=== PATIENT | female | born 1940 | race Caucasian/White ===

== ENCOUNTER 2021-02-28 06:04 | Inpatient (IN) | payer MEDICARE, OTHER ==
[~2021-02-28] VITALS: Ht 160 cm; Wt 73.5 kg
[~2021-02-28 06:04] MED LIST: ACET-1600 PO; CALC-112 PO; DILT120C11 PO; ERGO500017 PO; FENO160T PO; HYDR200T72 PO; LEVO88TA2 PO; LOSA100T14 PO; MAGN400T36 PO; MELO15TA24 PO; NIAC500T35 PO; OMEP-110 PO; POTA10TA5 PO; PSYL0.5215 PO; TEMA15CA PO; VIT-5 PO; [UNRECOGNIZED DRUG - CODE] PO
[2021-02-28] MEDS ORDERED: LACTATED RINGERS 1,000 ML IV SCH (07:00)
[2021-02-28] MEDS ORDERED: VANCOMYCIN PMX 1GM/200ML 200 ML IV ONE (07:00)
[2021-02-28] MEDS ORDERED: CHLORHEXIDINE 15 ML UDC PO ONE (07:00)
[2021-02-28] MEDS ORDERED: VANCOMYCIN 1,000 MG in SODIUM CHLORIDE 0.9% 100 ML IV ONE (07:00)
[2021-02-28] MEDS ORDERED: BUPIVACAINE/PF 0.5% ONE (07:07)
[2021-02-28] MEDS ORDERED: EPINEPHRINE 1 MG/ML, 1ML ONE (07:07)
[2021-02-28] MEDS ORDERED: THROMBIN 20,000 UNIT VIAL TP ONE (07:07)
[2021-02-28] MEDS ORDERED: VANCOMYCIN 1,000 MG ONE (07:07)
[2021-02-28] MEDS ORDERED: TRANEXAMIC ACID 100 MG/ML, 10ML ONE ×2 (07:07)
[2021-02-28] MEDS ORDERED: HEPARIN 1,000 UNITS/ML, 10ML ONE (07:42)
[2021-02-28] MEDS ORDERED: PROPOFOL 50 ML ONE ×3 (07:55→10:32)
[2021-02-28] MEDS ORDERED: FENTANYL PF 250 MCG/5ML ONE (07:55)
[2021-02-28] MEDS ORDERED: MIDAZOLAM 1 MG/ML, 2ML ONE (07:55)
[2021-02-28] MEDS ORDERED: HALOPERIDOL 5 MG/ML IV PRN (08:00)
[2021-02-28] MEDS ORDERED: HYDROmorphone 1 MG/ML, 1ML INJ IVPush PRN (08:00)
[2021-02-28] MEDS ORDERED: LABETALOL 5MG/ML, 20ML IV PRN (08:00)
[2021-02-28] MEDS ORDERED: DIPHENHYDRAMINE 50 MG/ML, 1ML IVPush PRN ×2 (08:00→13:00)
[2021-02-28] MEDS ORDERED: FENTANYL PF 100 MCG/2ML IV PRN (08:00)
[2021-02-28] MEDS ORDERED: ACETAMINOPHEN 325 MG TABLET PO PRN (08:00)
[2021-02-28] MEDS ORDERED: MEPERIDINE/PF 25MG/0.5ML IVPush PRN (08:00)
[2021-02-28] MEDS ORDERED: hydrALAzine 20 MG/ML, 1ML IV PRN (08:00)
[2021-02-28] MEDS ORDERED: OXYcodone 5 MG/5 ML ORAL.SOL UDC PO PRN (08:00)
[2021-02-28] MEDS ORDERED: PROMETHAZINE 25 MG/ML, 1ML IVPush PRN (08:00)
[2021-02-28] MEDS ORDERED: FENTANYL PF 100 MCG/2ML ONE (09:31)
[2021-02-28] MEDS ORDERED: BUPIVACAINE/PF-EPI 0.5% 1:200K IM ONE (10:03)
[2021-02-28] MEDS ORDERED: HYDROmorphone 1 MG/ML, 1ML INJ ONE (10:33)
[2021-02-28] MEDS ORDERED: NEOSTIGMINE 1 MG/ML, 10ML ONE (11:57)
[2021-02-28] MEDS ORDERED: PROPOFOL 10 MG/ML, 20ML ONE (11:57)
[2021-02-28] MEDS ORDERED: CEFAZOLIN 1,000 MG ONE (11:57)
[2021-02-28] MEDS ORDERED: SUCCINYLCHOLINE 20 MG/ML, 10ML ONE (11:57)
[2021-02-28] MEDS ORDERED: GLYCOPYRROLATE 0.2MG/1ML, 5ML ONE (11:57)
[2021-02-28] MEDS ORDERED: ROCURONIUM 10MG/ML,5ML ONE (11:57)
[2021-02-28] MEDS ORDERED: ONDANSETRON 2MG/ML, 2ML ONE (11:57)
[2021-02-28] MEDS ORDERED: DEXAMETHASONE 4 MG/ML, 1ML ONE (11:57)
[2021-02-28] MEDS ORDERED: TRANEXAMIC ACID 100 MG/ML, 10ML TP ONE (13:00)
[2021-02-28] MEDS: METHOCARBAMOL 1,000 MG in DEXTROSE 5% 100 ML IV SCH ×2 (13:00→21:02)
[2021-02-28] MEDS ORDERED: morphine SULFATE 10 MG/ML, 1ML IVPush PRN (13:00)
[2021-02-28] MEDS ORDERED: KETOROLAC 30 MG/1 ML IVPush PRN (13:00)
[2021-02-28] MEDS ORDERED: DIPHENHYDRAMINE 50 MG CAPSULE PO PRN (13:00)
[2021-02-28] MEDS ORDERED: PROMETHAZINE 25 MG/ML, 1ML IM PRN (13:00)
[2021-02-28] MEDS ORDERED: MAGNESIUM HYDROXIDE 8%, 30ML UDC PO PRN (13:00)
[2021-02-28] MEDS ORDERED: SODIUM CHLORIDE 0.9% 1,000 ML IV PRN (13:00)
[2021-02-28] MEDS ORDERED: KETOROLAC 30 MG/1 ML IVPush ONE (13:00)
[2021-02-28] MEDS ORDERED: HYDROmorphone 2MG TABLET PO PRN (13:00)
[2021-02-28] MEDS ORDERED: LORazepam 1MG TABLET PO PRN (13:00)
[2021-02-28] MEDS ORDERED: DIPHENHYDRAMINE 50 MG/ML, 1ML IM PRN (13:00)
[2021-02-28] MEDS ORDERED: BISACODYL 10 MG SUPP PR PRN (13:00)
[2021-02-28] MEDS ORDERED: TRANEXAMIC ACID 1,000 MG in SODIUM CHLORIDE 0.9% 100 ML IVPB ONE (13:30)
[2021-02-28] MEDS: NS + 20MEQ KCL 1,000 ML IV SCH (15:19)
[2021-02-28] MEDS: INSULIN REGULAR 100 UNITS/ML, 3ML VIAL SQ-INSULIN SCH ×2 (16:00→20:23)
[2021-02-28] MEDS: CEFAZOLIN PMX 1GM/50ML 50 ML IVPB SCH (16:00)
[2021-02-28] MEDS: OXYcodone IR 5MG TABLET PO PRN ×2 (18:02→21:02)
[2021-02-28 20:22] VITALS: BP 141/71
[2021-02-28] MEDS ORDERED: ZOLPIDEM 5MG TABLET PO PRN (21:00)
[2021-02-28] MEDS: ACETAMINOPHEN 500 MG TABLET PO SCH (21:03)
[2021-02-28] MEDS: HYDROXYCHLOROQUINE 200 MG TABLET PO SCH (21:03)
[2021-03-01 00:38] VITALS: BP 117/80
[2021-03-01] MEDS ORDERED: DEXAMETHASONE 4 MG/ML, 1ML ONE (00:51)
[2021-03-01] MEDS: CEFAZOLIN PMX 1GM/50ML 50 ML IVPB SCH (01:04)
[2021-03-01] MEDS: DEXAMETHASONE 4 MG/ML, 5ML IVPush PRN (01:04)
[2021-03-01] MEDS: NS + 20MEQ KCL 1,000 ML IV SCH ×2 (01:04→18:11)
[2021-03-01] MEDS: OXYcodone IR 5MG TABLET PO PRN (01:46)
[2021-03-01] MEDS: SENNA/DOCUSATE TABLET PO PRN (04:09)
[2021-03-01 04:39] VITALS: BP 153/52
[2021-03-01 05:31] LABS: BASOPHILS % (AUTO) 0 % (0-1); EOSINOPHILS % (AUTO) 0 % (1-7); LYMPHOCYTES % (AUTO) 4 % (22-44); MEAN CORPUSCULAR HEMOGLOBIN 28.4 pg (27.0-34.8); MEAN CORPUSCULAR HGB CONC 33.2 g/dL (32.4-35.8); MEAN PLATELET VOLUME 7.2 fL (7.4-10.4); MONOCYTES % (AUTO) 4 % (2-9); NEUTROPHILS % (AUTO) 91 % (42-75); PLATELET COUNT 294 x10^3/uL (130-400); RED BLOOD COUNT 3.41 x10^6/uL (3.82-5.3); RED CELL DISTRIBUTION WIDTH 15.2 % (9.6-15.2)
[2021-03-01] MEDS: METHOCARBAMOL 1,000 MG in DEXTROSE 5% 100 ML IV SCH ×2 (06:01→17:00)
[2021-03-01] MEDS: LEVOTHYROXINE 88 MCG TABLET PO SCH (06:02)
[2021-03-01] MEDS: OMEPRAZOLE 20 MG CAPSULE.DR PO SCH (06:37)
[2021-03-01] MEDS: INSULIN REGULAR 100 UNITS/ML, 3ML VIAL SQ-INSULIN SCH (06:38)
[2021-03-01 07:13] VITALS: BP 134/68
[2021-03-01] MEDS: FENOFIBRATE 145 MG TABLET PO SCH (08:59)
[2021-03-01] MEDS: POTASSIUM CHLORIDE 10 MEQ TABLET.ER PO SCH (09:00)
[2021-03-01] MEDS: ACETAMINOPHEN 500 MG TABLET PO SCH ×2 (09:00→20:52)
[2021-03-01] MEDS: LOSARTAN 100 MG TAB PO SCH (09:01)
[2021-03-01] MEDS: HYDROXYCHLOROQUINE 200 MG TABLET PO SCH ×2 (09:02→20:58)
[2021-03-01] MEDS: MAGNESIUM OXIDE 400 MG TABLET PO SCH (09:03)
[2021-03-01] MEDS: DILTIAZEM 120 MG CAP.ER.12H PO SCH (09:06)
[2021-03-01] MEDS: METHOCARBAMOL 750 MG TABLET PO SCH ×2 (13:00→20:53)
[2021-03-01 15:40] VITALS: BP 146/66
[2021-03-01] MEDS: PSYLLIUM PACKET PO SCH (20:00)
[2021-03-01 21:35] VITALS: BP 132/75
[2021-03-02] MEDS: OXYcodone IR 5MG TABLET PO PRN ×4 (01:45→17:38)
[2021-03-02 01:59] VITALS: BP 136/67
[2021-03-02] MEDS: METHOCARBAMOL 1,000 MG in DEXTROSE 5% 100 ML IV SCH ×2 (03:20→10:56)
[2021-03-02] MEDS: NS + 20MEQ KCL 1,000 ML IV SCH ×2 (03:20→12:26)
[2021-03-02] MEDS: LEVOTHYROXINE 88 MCG TABLET PO SCH (05:07)
[2021-03-02 05:35] LABS: BASOPHILS % (AUTO) 0 % (0-1); EOSINOPHILS % (AUTO) 0 % (1-7); LYMPHOCYTES % (AUTO) 11 % (22-44); MEAN CORPUSCULAR HGB CONC 32.5 g/dL (32.4-35.8); MEAN PLATELET VOLUME 7.5 fL (7.4-10.4); MONOCYTES % (AUTO) 10 % (2-9); NEUTROPHILS % (AUTO) 79 % (42-75); PLATELET COUNT 229 x10^3/uL (130-400); RED BLOOD COUNT 2.96 x10^6/uL (3.82-5.3); RED CELL DISTRIBUTION WIDTH 15.8 % (9.6-15.2)
[2021-03-02] MEDS: OMEPRAZOLE 20 MG CAPSULE.DR PO SCH (06:09)
[2021-03-02 07:14] VITALS: BP 137/68
[2021-03-02] MEDS: PSYLLIUM PACKET PO SCH (08:19)
[2021-03-02] MEDS: MAGNESIUM OXIDE 400 MG TABLET PO SCH (08:20)
[2021-03-02] MEDS: ACETAMINOPHEN 500 MG TABLET PO SCH ×2 (08:21→20:39)
[2021-03-02] MEDS: DILTIAZEM 120 MG CAP.ER.12H PO SCH (08:21)
[2021-03-02] MEDS: LOSARTAN 100 MG TAB PO SCH (08:21)
[2021-03-02] MEDS: POTASSIUM CHLORIDE 10 MEQ TABLET.ER PO SCH (08:21)
[2021-03-02] MEDS: FENOFIBRATE 145 MG TABLET PO SCH (08:21)
[2021-03-02] MEDS: HYDROXYCHLOROQUINE 200 MG TABLET PO SCH ×2 (08:29→20:39)
[2021-03-02] MEDS: SENNA/DOCUSATE TABLET PO PRN (10:56)
[2021-03-02] MEDS: METHOCARBAMOL 750 MG TABLET PO SCH ×2 (13:02→20:40)
[2021-03-02 14:07] VITALS: BP 132/65
[2021-03-02] MEDS: ONDANSETRON 2MG/ML, 2ML IV PRN (16:27)
[2021-03-02] MEDS: KETOROLAC 30 MG/1 ML IVPush PRN (16:27)
[2021-03-02 18:38] VITALS: BP 120/60
[2021-03-02] MEDS: GUAIFENESIN/DM 100-10MG, 5ML UDC PO PRN (20:38)
[2021-03-03] MEDS: KETOROLAC 30 MG/1 ML IVPush PRN ×3 (00:44→21:20)
[2021-03-03 00:46] VITALS: BP_SYST 136; BP_DIAS 66; BP_DIAS 86
[2021-03-03] MEDS: NS + 20MEQ KCL 1,000 ML IV SCH ×3 (02:06→23:29)
[2021-03-03] MEDS: METHOCARBAMOL 750 MG TABLET PO SCH ×3 (05:48→21:20)
[2021-03-03] MEDS: OMEPRAZOLE 20 MG CAPSULE.DR PO SCH (05:48)
[2021-03-03] MEDS: LEVOTHYROXINE 88 MCG TABLET PO SCH (05:49)
[2021-03-03 05:54] LABS: BASOPHILS % (AUTO) 0 % (0-1); EOSINOPHILS % (AUTO) 1 % (1-7); LYMPHOCYTES % (AUTO) 13 % (22-44); MEAN CORPUSCULAR HEMOGLOBIN 28.5 pg (27.0-34.8); MEAN CORPUSCULAR HGB CONC 32.7 g/dL (32.4-35.8); MEAN PLATELET VOLUME 7.6 fL (7.4-10.4); MONOCYTES % (AUTO) 8 % (2-9); NEUTROPHILS % (AUTO) 77 % (42-75); PLATELET COUNT 240 x10^3/uL (130-400); RED CELL DISTRIBUTION WIDTH 16.1 % (9.6-15.2)
[2021-03-03 08:48] VITALS: BP 137/69
[2021-03-03] MEDS: FENOFIBRATE 145 MG TABLET PO SCH (08:52)
[2021-03-03] MEDS: MAGNESIUM OXIDE 400 MG TABLET PO SCH (08:52)
[2021-03-03] MEDS: LOSARTAN 100 MG TAB PO SCH (08:52)
[2021-03-03] MEDS: OXYcodone IR 5MG TABLET PO PRN (08:52)
[2021-03-03] MEDS: PSYLLIUM PACKET PO SCH (08:52)
[2021-03-03] MEDS: POTASSIUM CHLORIDE 10 MEQ TABLET.ER PO SCH (08:52)
[2021-03-03] MEDS: DILTIAZEM 120 MG CAP.ER.12H PO SCH (08:52)
[2021-03-03] MEDS: HYDROXYCHLOROQUINE 200 MG TABLET PO SCH ×2 (08:53→21:00)
[2021-03-03] MEDS: ACETAMINOPHEN 500 MG TABLET PO SCH ×2 (08:56→21:19)
[2021-03-03] MEDS: ERGOCALCIFEROL 50,000 UNIT CAPSULE PO SCH (08:56)
[2021-03-03] MEDS: GUAIFENESIN/DM 100-10MG, 5ML UDC PO PRN ×2 (08:56→19:35)
[2021-03-03 13:29] VITALS: BP 125/63
[2021-03-03] MEDS ORDERED: DEXAMETHASONE 4 MG/ML, 1ML ONE ×2 (14:03→19:27)
[2021-03-03] MEDS: DEXAMETHASONE 4 MG/ML, 5ML IVPush PRN ×2 (14:06→19:34)
[2021-03-03 18:58] VITALS: BP 159/69
[2021-03-03] MEDS: SENNA/DOCUSATE TABLET PO PRN (19:35)
[2021-03-04 00:42] VITALS: BP 171/69
[2021-03-04] MEDS: LABETALOL 5MG/ML, 20ML IVPush PRN ×2 (00:49→07:14)
[2021-03-04 01:02] VITALS: BP 154/66
[2021-03-04] MEDS: GUAIFENESIN/DM 100-10MG, 5ML UDC PO PRN ×2 (02:47→21:26)
[2021-03-04] MEDS: METHOCARBAMOL 750 MG TABLET PO SCH ×3 (05:00→21:08)
[2021-03-04 05:49] LABS: BASOPHILS % (AUTO) 0 % (0-1); EOSINOPHILS % (AUTO) 0 % (1-7); LYMPHOCYTES % (AUTO) 5 % (22-44); MEAN CORPUSCULAR HEMOGLOBIN 28.2 pg (27.0-34.8); MEAN CORPUSCULAR HGB CONC 32.8 g/dL (32.4-35.8); MEAN PLATELET VOLUME 7.8 fL (7.4-10.4); MONOCYTES % (AUTO) 5 % (2-9); NEUTROPHILS % (AUTO) 90 % (42-75); PLATELET COUNT 262 x10^3/uL (130-400); RED BLOOD COUNT 2.77 x10^6/uL (3.82-5.3)
[2021-03-04] MEDS ORDERED: DEXAMETHASONE 4 MG/ML, 1ML ONE ×3 (06:22→18:26)
[2021-03-04] MEDS: KETOROLAC 30 MG/1 ML IVPush PRN ×2 (06:27→18:29)
[2021-03-04] MEDS: OMEPRAZOLE 20 MG CAPSULE.DR PO SCH (06:27)
[2021-03-04] MEDS: LEVOTHYROXINE 88 MCG TABLET PO SCH (06:28)
[2021-03-04] MEDS: DEXAMETHASONE 4 MG/ML, 5ML IVPush PRN ×3 (06:28→18:29)
[2021-03-04 06:34] VITALS: BP 164/66
[2021-03-04] MEDS: NS + 20MEQ KCL 1,000 ML IV SCH ×2 (08:04→17:03)
[2021-03-04 08:13] VITALS: BP 149/83
[2021-03-04] MEDS: LOSARTAN 100 MG TAB PO SCH (08:14)
[2021-03-04] MEDS: ACETAMINOPHEN 500 MG TABLET PO SCH ×2 (08:14→21:08)
[2021-03-04] MEDS: MAGNESIUM OXIDE 400 MG TABLET PO SCH (08:14)
[2021-03-04] MEDS: FENOFIBRATE 145 MG TABLET PO SCH (08:15)
[2021-03-04] MEDS: DILTIAZEM 120 MG CAP.ER.12H PO SCH (08:15)
[2021-03-04] MEDS: PSYLLIUM PACKET PO SCH (08:15)
[2021-03-04] MEDS: POTASSIUM CHLORIDE 10 MEQ TABLET.ER PO SCH (08:15)
[2021-03-04] MEDS: HYDROXYCHLOROQUINE 200 MG TABLET PO SCH ×2 (08:15→21:00)
[2021-03-04] MEDS: OXYcodone IR 5MG TABLET PO PRN (09:38)
[2021-03-04 13:35] VITALS: BP 138/63
[2021-03-04 19:08] VITALS: BP 151/64
[2021-03-04] MEDS: ALBUTEROL/IPRATROPIUM 2.5MG/0.5MG, 3 ML NPPB PRN (21:53)
[2021-03-05] MEDS ORDERED: DEXAMETHASONE 4 MG/ML, 1ML ONE ×2 (01:04→13:31)
[2021-03-05] MEDS: DEXAMETHASONE 4 MG/ML, 5ML IVPush PRN ×2 (01:17→13:37)
[2021-03-05] MEDS: LABETALOL 5MG/ML, 20ML IVPush PRN ×3 (01:27→13:37)
[2021-03-05 01:31] VITALS: BP 170/79
[2021-03-05 01:52] VITALS: BP 159/79
[2021-03-05] MEDS: LEVOTHYROXINE 88 MCG TABLET PO SCH (05:19)
[2021-03-05] MEDS: KETOROLAC 30 MG/1 ML IVPush PRN (05:19)
[2021-03-05] MEDS: METHOCARBAMOL 750 MG TABLET PO SCH ×3 (05:19→21:00)
[2021-03-05] MEDS: OMEPRAZOLE 20 MG CAPSULE.DR PO SCH (05:19)
[2021-03-05] MEDS: GUAIFENESIN/DM 100-10MG, 5ML UDC PO PRN ×3 (05:19→21:25)
[2021-03-05] MEDS: NS + 20MEQ KCL 1,000 ML IV SCH ×3 (05:40→21:00)
[2021-03-05 07:47] VITALS: BP 181/74
[2021-03-05] MEDS: ACETAMINOPHEN 500 MG TABLET PO SCH ×2 (09:00→21:25)
[2021-03-05] MEDS: HYDROXYCHLOROQUINE 200 MG TABLET PO SCH ×2 (09:36→21:25)
[2021-03-05] MEDS: POTASSIUM CHLORIDE 10 MEQ TABLET.ER PO SCH (09:36)
[2021-03-05] MEDS: FENOFIBRATE 145 MG TABLET PO SCH (09:36)
[2021-03-05] MEDS: LOSARTAN 100 MG TAB PO SCH (09:36)
[2021-03-05] MEDS: PSYLLIUM PACKET PO SCH (09:37)
[2021-03-05] MEDS: DILTIAZEM 120 MG CAP.ER.12H PO SCH (09:37)
[2021-03-05] MEDS: MAGNESIUM OXIDE 400 MG TABLET PO SCH (09:37)
[2021-03-05] MEDS: ONDANSETRON 2MG/ML, 2ML IV PRN (11:39)
[2021-03-05 11:59] LABS: BASOPHILS % (AUTO) 0 % (0-1); EOSINOPHILS % (AUTO) 0 % (1-7); LYMPHOCYTES % (AUTO) 5 % (22-44); MEAN CORPUSCULAR HGB CONC 32.8 g/dL (32.4-35.8); MEAN PLATELET VOLUME 7.6 fL (7.4-10.4); MONOCYTES % (AUTO) 10 % (2-9); NEUTROPHILS % (AUTO) 84 % (42-75); PLATELET COUNT 387 x10^3/uL (130-400); RED BLOOD COUNT 2.88 x10^6/uL (3.82-5.3); RED CELL DISTRIBUTION WIDTH 16.3 % (9.6-15.2)
[2021-03-05 12:33] VITALS: BP 192/79
[2021-03-05 18:44] VITALS: BP 155/91
[2021-03-05] MEDS: ALBUTEROL/IPRATROPIUM 2.5MG/0.5MG, 3 ML NPPB PRN (23:22)
[2021-03-06] VITALS (16 sets, daily range): BP systolic 118–201; BP diastolic 70–95
[2021-03-06] MEDS: TEMAZEPAM 15 MG CAPSULE PO PRN ×2 (00:13→21:38)
[2021-03-06] MEDS: METHOCARBAMOL 750 MG TABLET PO SCH ×4 (05:00→21:38)
[2021-03-06] MEDS: GUAIFENESIN/DM 100-10MG, 5ML UDC PO PRN ×2 (05:19→14:51)
[2021-03-06] MEDS: LEVOTHYROXINE 88 MCG TABLET PO SCH (05:19)
[2021-03-06] MEDS: LABETALOL 5MG/ML, 20ML IVPush PRN ×4 (05:32→12:58)
[2021-03-06] MEDS: OMEPRAZOLE 20 MG CAPSULE.DR PO SCH (06:10)
[2021-03-06 06:18] LABS: BASOPHILS % (AUTO) 0 % (0-1); EOSINOPHILS % (AUTO) 0 % (1-7); LYMPHOCYTES % (AUTO) 6 % (22-44); MEAN CORPUSCULAR HEMOGLOBIN 27.8 pg (27.0-34.8); MEAN CORPUSCULAR HGB CONC 32.8 g/dL (32.4-35.8); MEAN PLATELET VOLUME 7.8 fL (7.4-10.4); MONOCYTES % (AUTO) 6 % (2-9); NEUTROPHILS % (AUTO) 88 % (42-75); PLATELET COUNT 315 x10^3/uL (130-400); RED BLOOD COUNT 2.75 x10^6/uL (3.82-5.3)
[2021-03-06] MEDS: MAGNESIUM OXIDE 400 MG TABLET PO SCH (08:24)
[2021-03-06] MEDS: PSYLLIUM PACKET PO SCH (08:24)
[2021-03-06] MEDS: ACETAMINOPHEN 500 MG TABLET PO SCH ×2 (08:24→20:22)
[2021-03-06] MEDS: POTASSIUM CHLORIDE 10 MEQ TABLET.ER PO SCH (08:24)
[2021-03-06] MEDS: SENNA/DOCUSATE TABLET PO PRN (08:24)
[2021-03-06] MEDS: HYDROXYCHLOROQUINE 200 MG TABLET PO SCH ×2 (08:25→20:22)
[2021-03-06] MEDS: NS + 20MEQ KCL 1,000 ML IV SCH (10:00)
[2021-03-06] MEDS ORDERED: DEXTROMETHORPHAN 30 MG/5 ML ORAL SOL PO PRN (17:00)
[2021-03-06] MEDS ORDERED: AMLODIPINE 5 MG TABLET PO ONE (17:21)
[2021-03-06 17:38] LABS: MEAN CORPUSCULAR HEMOGLOBIN 27.5 pg (27.0-34.8); MEAN CORPUSCULAR HGB CONC 32.3 g/dL (32.4-35.8); MEAN PLATELET VOLUME 7.6 fL (7.4-10.4); PLATELET COUNT 388 x10^3/uL (130-400); RED BLOOD COUNT 2.88 x10^6/uL (3.82-5.3); RED CELL DISTRIBUTION WIDTH 15.9 % (9.6-15.2)
[2021-03-06 17:49] LABS: ALANINE AMINOTRANSFERASE 43 U/L (12-78); ALBUMIN 2.2 g/dL (3.4-5.0); ANION GAP 6 mmol/L (5-15); CALCIUM 8.4 mg/dL (8.5-10.1); CHLORIDE 104 mmol/L (98-107); CREATININE 0.74 mg/dL (0.55-1.02)
[2021-03-06 17:51] LABS: ALKALINE PHOSPHATASE 46 U/L (45-117); BILIRUBIN,TOTAL 0.5 mg/dL (0.2-1.0); TOTAL PROTEIN 5.8 g/dL (6.4-8.2)
[2021-03-06 18:09] LABS: BAND#(MANUAL) 0.52 x10^3/uL; BANDS%(MANUAL) 3 % (0-7); LYMPH#(MANUAL) 1.74 x10^3/uL (1-3.4); LYMPHS% (MANUAL) 10 % (22-44); METAMYELOCYTES# (MANUAL) 0.35 x10^3/uL (0-0); METAMYELOCYTES% (MANUAL) 2 % (0-1); MONOS#(MANUAL) 1.22 x10^3/uL (0.3-2.7); MONOS% (MANUAL) 7 % (2-9); MYELOCYTES# (MANUAL) 0.17 x10^3/uL (0-0); MYELOCYTES% (MANUAL) 1 % (0-0); SEGS% (MANUAL) 77 % (42-75)
[2021-03-06 18:10] LABS: <PLATELET ESTIMATE> ADEQUATE; <PLT MORPHOLOGY> NORMAL PLT MORPH; <RBC MORPHOLOGY> NORMAL
[2021-03-06] MEDS: FENOFIBRATE 145 MG TABLET PO SCH (20:22)
[2021-03-06] MEDS: LOSARTAN 100 MG TAB PO SCH (20:22)
[2021-03-06] MEDS ORDERED: DILTIAZEM 120 MG CAP.ER.12H PO SCH (21:00)
[2021-03-07] MEDS ORDERED: CARVEDILOL 3.125 MG TABLET PO ONE (02:00)
[2021-03-07] MEDS ORDERED: CARVEDILOL 3.125 MG TABLET ONE (02:06)
[2021-03-07] MEDS ORDERED: KETOROLAC 15 MG/1ML IM SCH (02:10)
[2021-03-07 02:31] VITALS: BP 171/80
[2021-03-07 02:39] LABS: MEAN CORPUSCULAR HEMOGLOBIN 27.8 pg (27.0-34.8); MEAN CORPUSCULAR HGB CONC 32.8 g/dL (32.4-35.8); MEAN PLATELET VOLUME 7.9 fL (7.4-10.4); PLATELET COUNT 406 x10^3/uL (130-400); RED BLOOD COUNT 3.06 x10^6/uL (3.82-5.3); RED CELL DISTRIBUTION WIDTH 16.2 % (9.6-15.2)
[2021-03-07] MEDS: KETOROLAC 30 MG/1 ML IM SCH ×2 (02:44→05:14)
[2021-03-07 02:49] LABS: ANION GAP 8 mmol/L (5-15); CALCIUM 8.5 mg/dL (8.5-10.1); CHLORIDE 101 mmol/L (98-107); CREATININE 0.63 mg/dL (0.55-1.02)
[2021-03-07 02:53] LABS: TROPONIN I 0.029 ng/mL (0.000-0.045)
[2021-03-07] MEDS ORDERED: OMNIPAQUE 350 MG/ML, 75ML BOTTLE ONE (03:28)
[2021-03-07 03:32] LABS: BAND#(MANUAL) 0.56 x10^3/uL; BANDS%(MANUAL) 3 % (0-7); LYMPH#(MANUAL) 1.87 x10^3/uL (1-3.4); LYMPHS% (MANUAL) 10 % (22-44); MONOS#(MANUAL) 0.75 x10^3/uL (0.3-2.7); MONOS% (MANUAL) 4 % (2-9); MYELOCYTES# (MANUAL) 0.19 x10^3/uL (0-0); MYELOCYTES% (MANUAL) 1 % (0-0); SEG#(MANUAL) 15.33 x10^3/uL (1.8-6.8); SEGS% (MANUAL) 82 % (42-75)
[2021-03-07 03:33] LABS: ANISOCYTOSIS 1+; ECHINOCYTES 1+; OVALOCYTES 1+; POLYCHROMASIA 1+
[2021-03-07 03:34] LABS: <PLATELET ESTIMATE> INCREASED; <PLT MORPHOLOGY> NORMAL PLT MORPH
[2021-03-07 03:43] VITALS: BP 138/88
[2021-03-07] MEDS ORDERED: METOPROLOL 1 MG/ML, 5ML ONE (03:56)
[2021-03-07] MEDS: METOPROLOL 1 MG/ML, 5ML IVPush PRN ×3 (03:59→08:46)
[2021-03-07] MEDS: ACETAMINOPHEN 500 MG TABLET PO PRN ×2 (04:11→17:34)
[2021-03-07] MEDS: METHOCARBAMOL 750 MG TABLET PO SCH ×3 (05:14→20:29)
[2021-03-07] MEDS: OMEPRAZOLE 20 MG CAPSULE.DR PO SCH (05:14)
[2021-03-07] MEDS: LEVOTHYROXINE 88 MCG TABLET PO SCH (05:14)
[2021-03-07] MEDS: KETOROLAC 30 MG/1 ML IVPush SCH ×2 (05:25→10:49)
[2021-03-07 07:29] VITALS: BP 124/79
[2021-03-07] MEDS: MAGNESIUM OXIDE 400 MG TABLET PO SCH (08:39)
[2021-03-07] MEDS: POTASSIUM CHLORIDE 10 MEQ TABLET.ER PO SCH (08:39)
[2021-03-07] MEDS: ACETAMINOPHEN 500 MG TABLET PO SCH ×2 (08:39→20:29)
[2021-03-07] MEDS: HYDROXYCHLOROQUINE 200 MG TABLET PO SCH ×2 (08:39→20:30)
[2021-03-07] MEDS: AMLODIPINE 5 MG TABLET PO SCH (08:39)
[2021-03-07] MEDS: PSYLLIUM PACKET PO SCH (08:40)
[2021-03-07] MEDS: METOPROLOL TARTRATE 25 MG TAB PO SCH ×2 (08:51→17:35)
[2021-03-07 12:34] VITALS: BP 149/67
[2021-03-07] MEDS: ONDANSETRON 2MG/ML, 2ML IV PRN (13:05)
[2021-03-07] MEDS: DIAZEPAM 5 MG TABLET PO PRN (17:35)
[2021-03-07 20:00] VITALS: BP 147/69
[2021-03-07] MEDS: TEMAZEPAM 15 MG CAPSULE PO PRN (20:29)
[2021-03-07] MEDS: LOSARTAN 100 MG TAB PO SCH (20:30)
[2021-03-07] MEDS: FENOFIBRATE 145 MG TABLET PO SCH (20:30)
[2021-03-08 01:42] VITALS: BP 150/69
[2021-03-08] MEDS: ACETAMINOPHEN 500 MG TABLET PO PRN ×2 (01:55→13:00)
[2021-03-08] MEDS: DIAZEPAM 5 MG TABLET PO PRN (04:24)
[2021-03-08 04:49] LABS: MEAN CORPUSCULAR HEMOGLOBIN 27.8 pg (27.0-34.8); MEAN PLATELET VOLUME 7.3 fL (7.4-10.4); PLATELET COUNT 388 x10^3/uL (130-400); RED BLOOD COUNT 2.72 x10^6/uL (3.82-5.3); RED CELL DISTRIBUTION WIDTH 15.5 % (9.6-15.2)
[2021-03-08] MEDS: METHOCARBAMOL 750 MG TABLET PO SCH ×3 (05:35→21:06)
[2021-03-08] MEDS: LEVOTHYROXINE 88 MCG TABLET PO SCH (05:36)
[2021-03-08] MEDS: OMEPRAZOLE 20 MG CAPSULE.DR PO SCH (05:36)
[2021-03-08] MEDS: METOPROLOL TARTRATE 25 MG TAB PO SCH ×2 (05:36→17:55)
[2021-03-08 05:39] LABS: EOS#(MANUAL) 0.19 x10^3/uL (0.0-0.4); EOS% (MANUAL) 1 % (1-7); LYMPH#(MANUAL) 1.12 x10^3/uL (1-3.4); LYMPHS% (MANUAL) 6 % (22-44); METAMYELOCYTES# (MANUAL) 0.19 x10^3/uL (0-0); METAMYELOCYTES% (MANUAL) 1 % (0-1); MONOS#(MANUAL) 0.56 x10^3/uL (0.3-2.7); MONOS% (MANUAL) 3 % (2-9); SEG#(MANUAL) 16.64 x10^3/uL (1.8-6.8); SEGS% (MANUAL) 89 % (42-75)
[2021-03-08 05:40] LABS: <PLATELET ESTIMATE> ADEQUATE; <PLT MORPHOLOGY> NORMAL PLT MORPH; ANISOCYTOSIS 1+; POLYCHROMASIA 1+
[2021-03-08 05:41] LABS: PMNS WITH VACUOLES 1+; TOXIC GRAN 1+
[2021-03-08 05:42] LABS: ECHINOCYTES 1+
[2021-03-08 08:32] VITALS: BP 164/74
[2021-03-08] MEDS: PSYLLIUM PACKET PO SCH (08:44)
[2021-03-08] MEDS: MAGNESIUM OXIDE 400 MG TABLET PO SCH (08:45)
[2021-03-08] MEDS: ACETAMINOPHEN 500 MG TABLET PO SCH ×2 (08:45→21:06)
[2021-03-08] MEDS: HYDROXYCHLOROQUINE 200 MG TABLET PO SCH ×2 (08:45→21:06)
[2021-03-08] MEDS: POTASSIUM CHLORIDE 10 MEQ TABLET.ER PO SCH (08:45)
[2021-03-08] MEDS: AMLODIPINE 5 MG TABLET PO SCH (08:45)
[2021-03-08 12:14] LABS: ANION GAP 9 mmol/L (5-15); CALCIUM 8.1 mg/dL (8.5-10.1); CHLORIDE 100 mmol/L (98-107); CREATININE 0.53 mg/dL (0.55-1.02)
[2021-03-08 13:06] VITALS: BP 158/68
[2021-03-08] MEDS ORDERED: KETOROLAC 30 MG/1 ML IM PRN (13:30)
[2021-03-08] MEDS ORDERED: HYDROmorphone 2MG TABLET PO PRN (15:00)
[2021-03-08] MEDS: GUAIFENESIN/DM 100-10MG, 5ML UDC PO PRN (15:32)
[2021-03-08] MEDS ORDERED: RIVAROXABAN 20 MG TABLET PO SCH (17:00)
[2021-03-08 20:56] VITALS: BP 158/70
[2021-03-08] MEDS: FENOFIBRATE 145 MG TABLET PO SCH (21:06)
[2021-03-08] MEDS: LOSARTAN 100 MG TAB PO SCH (21:06)
[2021-03-08] MEDS: TEMAZEPAM 15 MG CAPSULE PO PRN (21:06)
[2021-03-09] MEDS: ACETAMINOPHEN 500 MG TABLET PO PRN (01:00)
[2021-03-09] MEDS: DIAZEPAM 5 MG TABLET PO PRN (01:00)
[2021-03-09 02:23] VITALS: BP 144/69
[2021-03-09 04:24] LABS: BASOPHILS % (AUTO) 0 % (0-1); EOSINOPHILS % (AUTO) 1 % (1-7); LYMPHOCYTES % (AUTO) 7 % (22-44); MEAN CORPUSCULAR HEMOGLOBIN 27.9 pg (27.0-34.8); MEAN CORPUSCULAR HGB CONC 33.1 g/dL (32.4-35.8); MEAN PLATELET VOLUME 7.1 fL (7.4-10.4); MONOCYTES % (AUTO) 4 % (2-9); NEUTROPHILS % (AUTO) 88 % (42-75); PLATELET COUNT 423 x10^3/uL (130-400); RED BLOOD COUNT 2.96 x10^6/uL (3.82-5.3); RED CELL DISTRIBUTION WIDTH 15.9 % (9.6-15.2)
[2021-03-09] MEDS: METHOCARBAMOL 750 MG TABLET PO SCH ×2 (05:25→14:00)
[2021-03-09] MEDS: METOPROLOL TARTRATE 25 MG TAB PO SCH ×2 (05:25→18:45)
[2021-03-09] MEDS: OMEPRAZOLE 20 MG CAPSULE.DR PO SCH (05:25)
[2021-03-09] MEDS: LEVOTHYROXINE 88 MCG TABLET PO SCH (05:26)
[2021-03-09] MEDS: ONDANSETRON 2MG/ML, 2ML IV PRN (07:28)
[2021-03-09 08:11] VITALS: BP 187/73
[2021-03-09] MEDS: MAGNESIUM OXIDE 400 MG TABLET PO SCH (08:35)
[2021-03-09] MEDS: PSYLLIUM PACKET PO SCH (08:35)
[2021-03-09] MEDS: ACETAMINOPHEN 500 MG TABLET PO SCH ×3 (08:35→21:00)
[2021-03-09] MEDS: HYDROXYCHLOROQUINE 200 MG TABLET PO SCH (08:35)
[2021-03-09] MEDS: POTASSIUM CHLORIDE 10 MEQ TABLET.ER PO SCH (08:35)
[2021-03-09] MEDS: AMLODIPINE 5 MG TABLET PO SCH (08:35)
[2021-03-09 09:42] VITALS: BP 127/67
[2021-03-09] MEDS ORDERED: OMNIPAQUE 350 MG/ML, 100ML BOTTLE ONE (10:58)
[2021-03-09] MEDS ORDERED: SODIUM CHLORIDE 0.9% 1,000 ML IV SCH (12:00)
[2021-03-09] MEDS ORDERED: EPINEPHRINE 1 MG/ML, 1ML ONE (13:13)
[2021-03-09] MEDS ORDERED: BUPIVACAINE/PF 0.5% ONE (13:13)
[2021-03-09] MEDS ORDERED: LABETALOL 5MG/ML, 20ML IV PRN (15:30)
[2021-03-09] MEDS ORDERED: PROMETHAZINE 25 MG/ML, 1ML IV PRN (15:30)
[2021-03-09] MEDS ORDERED: HALOPERIDOL 5 MG/ML IV PRN (15:30)
[2021-03-09] MEDS ORDERED: HYDROmorphone 2 MG/ML, 1ML IVPush PRN (15:30)
[2021-03-09] MEDS ORDERED: hydrALAzine 20 MG/ML, 1ML IV PRN (15:30)
[2021-03-09] MEDS ORDERED: FENTANYL PF 100 MCG/2ML IV PRN (15:30)
[2021-03-09] MEDS ORDERED: ALBUTEROL SULFATE 2.5 MG/3 ML NPPB PRN (15:30)
[2021-03-09] MEDS ORDERED: OXYcodone 5 MG/5 ML ORAL.SOL UDC PO PRN (15:30)
[2021-03-09] MEDS ORDERED: FENTANYL PF 250 MCG/5ML ONE (15:31)
[2021-03-09] MEDS ORDERED: DEXAMETHASONE 4 MG/ML, 1ML ONE (15:34)
[2021-03-09] MEDS ORDERED: CEFAZOLIN 1,000 MG ONE (15:34)
[2021-03-09] MEDS ORDERED: SUCCINYLCHOLINE 20 MG/ML, 10ML ONE (15:34)
[2021-03-09] MEDS ORDERED: NEOSTIGMINE 1 MG/ML, 10ML ONE (15:34)
[2021-03-09] MEDS ORDERED: ONDANSETRON 2MG/ML, 2ML ONE (15:34)
[2021-03-09] MEDS ORDERED: ROCURONIUM 10MG/ML,5ML ONE (15:34)
[2021-03-09] MEDS ORDERED: GLYCOPYRROLATE 0.2MG/1ML, 5ML ONE (15:34)
[2021-03-09] MEDS ORDERED: PROPOFOL 10 MG/ML, 20ML ONE (15:34)
[2021-03-09] MEDS ORDERED: METOPROLOL 1 MG/ML, 5ML ONE (15:45)
[2021-03-09] MEDS ORDERED: SUGAMMADEX 200 MG/2 ML IVPush ONE (16:00)
[2021-03-09] MEDS ORDERED: FENTANYL PF 100 MCG/2ML ONE (16:10)
[2021-03-09] MEDS ORDERED: KETOROLAC 30 MG/1 ML ONE (16:34)
[2021-03-09] MEDS: KETOROLAC 30 MG/1 ML IVPush SCH ×3 (16:53→23:40)
[2021-03-09] MEDS ORDERED: METHOCARBAMOL 1,000 MG in DEXTROSE 5% 100 ML IV ONE (17:00)
[2021-03-09] MEDS ORDERED: METHOCARBAMOL 1000MG/10 ML IV ONE (17:00)
[2021-03-09 18:03] VITALS: BP 128/77
[2021-03-09] MEDS ORDERED: SCOPOLAMINE PATCH, 1.5MG PATCH.TD72 TD PRN (19:30)
[2021-03-09] MEDS ORDERED: DEXAMETHASONE 4 MG/ML, 1ML IVPush PRN (19:30)
[2021-03-09] MEDS ORDERED: HYDROmorphone 1 MG/ML, 1ML INJ IVPush PRN (19:30)
[2021-03-09] MEDS ORDERED: DIPHENHYDRAMINE 50 MG/ML, 1ML IVPush PRN (19:30)
[2021-03-09] MEDS ORDERED: ONDANSETRON 2MG/ML, 2ML IV PRN (19:30)
[2021-03-09] MEDS ORDERED: TRAZODONE 50MG TABLET PO PRN (19:30)
[2021-03-09] MEDS ORDERED: OXYcodone IR 5MG TABLET PO PRN (19:30)
[2021-03-09] MEDS ORDERED: LORazepam 1MG TABLET PO PRN (19:30)
[2021-03-09] MEDS ORDERED: LORazepam 2 MG/ML, 1ML IVPush PRN (19:30)
[2021-03-09] MEDS ORDERED: HALOPERIDOL 5 MG/ML IVPush PRN (19:30)
[2021-03-09] MEDS: LACTATED RINGERS 1,000 ML IV SCH (19:30)
[2021-03-09 20:33] VITALS: BP 145/71
[2021-03-09] MEDS: PIPERACILLIN/TAZO 3.375 GM in DEXTROSE 5% 50 ML IVPB SCH (20:47)
[2021-03-09] MEDS: LOSARTAN 100 MG TAB PO SCH (20:48)
[2021-03-09] MEDS: FENOFIBRATE 145 MG TABLET PO SCH (20:48)
[2021-03-09] MEDS: TEMAZEPAM 15 MG CAPSULE PO PRN (20:55)
[2021-03-10 00:33] VITALS: BP 122/62
[2021-03-10] MEDS: METHOCARBAMOL 750 MG TABLET PO SCH ×3 (01:06→18:27)
[2021-03-10] MEDS: ACETAMINOPHEN 500 MG TABLET PO SCH ×6 (02:36→21:00)
[2021-03-10] MEDS: KETOROLAC 30 MG/1 ML IVPush SCH ×7 (02:36→20:23)
[2021-03-10] MEDS: PIPERACILLIN/TAZO 3.375 GM in DEXTROSE 5% 50 ML IVPB SCH ×4 (02:36→20:23)
[2021-03-10 03:28] LABS: BASOPHILS % (AUTO) 0 % (0-1); EOSINOPHILS % (AUTO) 0 % (1-7); LYMPHOCYTES % (AUTO) 5 % (22-44); MEAN CORPUSCULAR HGB CONC 33.2 g/dL (32.4-35.8); MEAN PLATELET VOLUME 7.1 fL (7.4-10.4); MONOCYTES % (AUTO) 3 % (2-9); NEUTROPHILS % (AUTO) 92 % (42-75); PLATELET COUNT 469 x10^3/uL (130-400); RED BLOOD COUNT 2.64 x10^6/uL (3.82-5.3)
[2021-03-10 03:38] LABS: ALBUMIN 1.4 g/dL (3.4-5.0); ANION GAP 8 mmol/L (5-15); CALCIUM 7.7 mg/dL (8.5-10.1); CHLORIDE 99 mmol/L (98-107)
[2021-03-10 03:41] LABS: ALANINE AMINOTRANSFERASE 23 U/L (12-78); ALKALINE PHOSPHATASE 50 U/L (45-117); BILIRUBIN,TOTAL 0.4 mg/dL (0.2-1.0); CREATININE 0.57 mg/dL (0.55-1.02)
[2021-03-10] MEDS: OMEPRAZOLE 20 MG CAPSULE.DR PO SCH (05:07)
[2021-03-10] MEDS: METOPROLOL TARTRATE 25 MG TAB PO SCH ×2 (05:07→18:28)
[2021-03-10] MEDS: LEVOTHYROXINE 88 MCG TABLET PO SCH (05:07)
[2021-03-10] MEDS: AMLODIPINE 5 MG TABLET PO SCH (08:06)
[2021-03-10 08:15] VITALS: BP 147/69
[2021-03-10] MEDS: PSYLLIUM PACKET PO SCH (09:00)
[2021-03-10] MEDS: MAGNESIUM OXIDE 400 MG TABLET PO SCH (09:44)
[2021-03-10] MEDS: POTASSIUM CHLORIDE 10 MEQ TABLET.ER PO SCH (09:44)
[2021-03-10] MEDS: ENOXAPARIN 40 MG/0.4 ML SQ SCH (09:46)
[2021-03-10] MEDS: ERGOCALCIFEROL 50,000 UNIT CAPSULE PO SCH (09:51)
[2021-03-10 15:29] VITALS: BP 137/71
[2021-03-10] MEDS: LACTATED RINGERS 1,000 ML IV SCH (15:30)
[2021-03-10] MEDS ORDERED: LACTATED RINGERS 1,000 ML IV SCH ×2 (17:30→18:30)
[2021-03-10 19:40] VITALS: BP 155/78
[2021-03-10] MEDS: FENOFIBRATE 145 MG TABLET PO SCH (20:23)
[2021-03-10] MEDS: LOSARTAN 100 MG TAB PO SCH (20:23)
[2021-03-10] MEDS: TEMAZEPAM 15 MG CAPSULE PO PRN (20:28)
[2021-03-10] MEDS: CALCIUM CARBONATE 500 MG TAB.CHEW PO PRN (22:37)
[2021-03-11] VITALS (8 sets, daily range): BP systolic 117–173; BP diastolic 62–77
[2021-03-11] MEDS: KETOROLAC 30 MG/1 ML IVPush SCH ×9 (00:36→23:00)
[2021-03-11] MEDS: ACETAMINOPHEN 500 MG TABLET PO SCH ×6 (01:45→21:00)
[2021-03-11] MEDS: METHOCARBAMOL 750 MG TABLET PO SCH ×3 (01:45→20:55)
[2021-03-11] MEDS: PIPERACILLIN/TAZO 3.375 GM in DEXTROSE 5% 50 ML IVPB SCH ×4 (01:46→20:55)
[2021-03-11 03:30] LABS: MEAN CORPUSCULAR HEMOGLOBIN 27.9 pg (27.0-34.8); MEAN CORPUSCULAR HGB CONC 33.3 g/dL (32.4-35.8); MEAN PLATELET VOLUME 7.3 fL (7.4-10.4); PLATELET COUNT 484 x10^3/uL (130-400); RED BLOOD COUNT 2.71 x10^6/uL (3.82-5.3)
[2021-03-11 03:35] LABS: ALBUMIN 1.4 g/dL (3.4-5.0); ANION GAP 6 mmol/L (5-15); CALCIUM 7.7 mg/dL (8.5-10.1); CHLORIDE 102 mmol/L (98-107); CREATININE 0.57 mg/dL (0.55-1.02)
[2021-03-11 03:49] LABS: ANISOCYTOSIS 1+; BAND#(MANUAL) 1.72 x10^3/uL; BANDS%(MANUAL) 12 % (0-7); LYMPH#(MANUAL) 1.72 x10^3/uL (1-3.4); LYMPHS% (MANUAL) 12 % (22-44); MONOS% (MANUAL) 7 % (2-9); MYELOCYTES# (MANUAL) 0.14 x10^3/uL (0-0); MYELOCYTES% (MANUAL) 1 % (0-0); OVALOCYTES 1+; SEG#(MANUAL) 9.72 x10^3/uL (1.8-6.8); SEGS% (MANUAL) 68 % (42-75)
[2021-03-11 03:50] LABS: <PLATELET ESTIMATE> ADEQUATE; <PLT MORPHOLOGY> NORMAL PLT MORPH; PMNS WITH VACUOLES 1+; TOXIC GRAN 1+
[2021-03-11 03:51] LABS: MICROCYTOSIS 1+
[2021-03-11] MEDS: OMEPRAZOLE 20 MG CAPSULE.DR PO SCH (05:30)
[2021-03-11] MEDS: LEVOTHYROXINE 88 MCG TABLET PO SCH (05:31)
[2021-03-11] MEDS: METOPROLOL TARTRATE 25 MG TAB PO SCH ×2 (05:31→17:58)
[2021-03-11 06:42] LABS: MEAN CORPUSCULAR HEMOGLOBIN 27.8 pg (27.0-34.8); MEAN CORPUSCULAR HGB CONC 32.8 g/dL (32.4-35.8); MEAN PLATELET VOLUME 7.3 fL (7.4-10.4); PLATELET COUNT 521 x10^3/uL (130-400); RED CELL DISTRIBUTION WIDTH 15.9 % (9.6-15.2)
[2021-03-11 07:04] LABS: EOS#(MANUAL) 0.13 x10^3/uL (0.0-0.4); EOS% (MANUAL) 1 % (1-7); LYMPH#(MANUAL) 1.03 x10^3/uL (1-3.4); LYMPHS% (MANUAL) 8 % (22-44); METAMYELOCYTES# (MANUAL) 0.26 x10^3/uL (0-0); METAMYELOCYTES% (MANUAL) 2 % (0-1); MONOS#(MANUAL) 1.42 x10^3/uL (0.3-2.7); MONOS% (MANUAL) 11 % (2-9)
[2021-03-11 07:05] LABS: ANISOCYTOSIS 1+; BAND#(MANUAL) 0.26 x10^3/uL; BANDS%(MANUAL) 2 % (0-7); OVALOCYTES 1+; PMNS WITH VACUOLES 1+; POLYCHROMASIA 1+; SEGS% (MANUAL) 76 % (42-75)
[2021-03-11 07:06] LABS: TOXIC GRAN 1+
[2021-03-11 07:07] LABS: <PLATELET ESTIMATE> INCREASED; <PLT MORPHOLOGY> NORMAL PLT MORPH
[2021-03-11] MEDS: ENOXAPARIN 40 MG/0.4 ML SQ SCH (08:32)
[2021-03-11] MEDS: AMLODIPINE 5 MG TABLET PO SCH (08:37)
[2021-03-11] MEDS: MAGNESIUM OXIDE 400 MG TABLET PO SCH (08:38)
[2021-03-11] MEDS: NYSTATIN 500,000 UNITS/5 ML UDC PO SCH ×3 (11:31→20:55)
[2021-03-11] MEDS ORDERED: LACTATED RINGERS 1,000 ML IV SCH (17:30)
[2021-03-11] MEDS: LOSARTAN 100 MG TAB PO SCH (20:55)
[2021-03-11] MEDS: FENOFIBRATE 145 MG TABLET PO SCH (20:55)
[2021-03-11] MEDS: TEMAZEPAM 15 MG CAPSULE PO PRN (21:00)
[2021-03-11] MEDS: CALCIUM CARBONATE 500 MG TAB.CHEW PO PRN (21:56)
[2021-03-12 01:05] VITALS: BP 165/72
[2021-03-12] MEDS: PIPERACILLIN/TAZO 3.375 GM in DEXTROSE 5% 50 ML IVPB SCH ×4 (03:17→20:19)
[2021-03-12] MEDS: METHOCARBAMOL 750 MG TABLET PO SCH ×3 (03:17→20:18)
[2021-03-12] MEDS: KETOROLAC 30 MG/1 ML IVPush SCH ×5 (03:17→16:38)
[2021-03-12] MEDS: ACETAMINOPHEN 500 MG TABLET PO SCH ×6 (03:17→20:17)
[2021-03-12 03:18] LABS: MEAN CORPUSCULAR HEMOGLOBIN 28.5 pg (27.0-34.8); MEAN CORPUSCULAR HGB CONC 33.8 g/dL (32.4-35.8); PLATELET COUNT 542 x10^3/uL (130-400); RED CELL DISTRIBUTION WIDTH 15.4 % (9.6-15.2)
[2021-03-12 03:26] LABS: ALBUMIN 1.4 g/dL (3.4-5.0); ANION GAP 4 mmol/L (5-15); CALCIUM 8.1 mg/dL (8.5-10.1); CHLORIDE 103 mmol/L (98-107)
[2021-03-12 03:27] LABS: CREATININE 0.54 mg/dL (0.55-1.02)
[2021-03-12 03:46] LABS: ANISOCYTOSIS 1+; BAND#(MANUAL) 0.39 x10^3/uL; BANDS%(MANUAL) 3 % (0-7); EOS#(MANUAL) 0.13 x10^3/uL (0.0-0.4); EOS% (MANUAL) 1 % (1-7); HYPOCHROMIA 1+; LYMPH#(MANUAL) 1.05 x10^3/uL (1-3.4); LYMPHS% (MANUAL) 8 % (22-44); METAMYELOCYTES# (MANUAL) 0.13 x10^3/uL (0-0); METAMYELOCYTES% (MANUAL) 1 % (0-1); MONOS#(MANUAL) 1.18 x10^3/uL (0.3-2.7); MONOS% (MANUAL) 9 % (2-9); SEG#(MANUAL) 10.22 x10^3/uL (1.8-6.8); SEGS% (MANUAL) 78 % (42-75)
[2021-03-12 03:47] LABS: <PLATELET ESTIMATE> INCREASED; <PLT MORPHOLOGY> NORMAL PLT MORPH; OVALOCYTES 1+; PMNS WITH VACUOLES 1+; TOXIC GRAN 1+
[2021-03-12] MEDS: OMEPRAZOLE 20 MG CAPSULE.DR PO SCH (05:35)
[2021-03-12] MEDS: NYSTATIN 500,000 UNITS/5 ML UDC PO SCH ×4 (05:35→20:18)
[2021-03-12] MEDS: LEVOTHYROXINE 88 MCG TABLET PO SCH (05:35)
[2021-03-12] MEDS: METOPROLOL TARTRATE 25 MG TAB PO SCH ×2 (05:36→17:36)
[2021-03-12 06:14] LABS: MEAN CORPUSCULAR HEMOGLOBIN 28.5 pg (27.0-34.8); MEAN CORPUSCULAR HGB CONC 33.7 g/dL (32.4-35.8); MEAN PLATELET VOLUME 7.1 fL (7.4-10.4); PLATELET COUNT 566 x10^3/uL (130-400); RED BLOOD COUNT 3.25 x10^6/uL (3.82-5.3); RED CELL DISTRIBUTION WIDTH 15.7 % (9.6-15.2)
[2021-03-12 06:46] VITALS: BP 173/73
[2021-03-12 06:56] LABS: BAND#(MANUAL) 0.28 x10^3/uL; BANDS%(MANUAL) 2 % (0-7); LYMPH#(MANUAL) 1.55 x10^3/uL (1-3.4); LYMPHS% (MANUAL) 11 % (22-44); METAMYELOCYTES# (MANUAL) 0.28 x10^3/uL (0-0); METAMYELOCYTES% (MANUAL) 2 % (0-1); MONOS#(MANUAL) 0.42 x10^3/uL (0.3-2.7); MONOS% (MANUAL) 3 % (2-9); SEG#(MANUAL) 11.56 x10^3/uL (1.8-6.8); SEGS% (MANUAL) 82 % (42-75)
[2021-03-12 06:57] LABS: ANISOCYTOSIS 1+; HYPOCHROMIA 1+; OVALOCYTES 1+
[2021-03-12 06:58] LABS: <PLATELET ESTIMATE> INCREASED; <PLT MORPHOLOGY> NORMAL PLT MORPH; PMNS WITH VACUOLES 1+; TOXIC GRAN 1+
[2021-03-12] MEDS: AMLODIPINE 5 MG TABLET PO SCH (09:24)
[2021-03-12] MEDS: MAGNESIUM OXIDE 400 MG TABLET PO SCH (09:24)
[2021-03-12] MEDS: ENOXAPARIN 40 MG/0.4 ML SQ SCH (09:24)
[2021-03-12 14:42] VITALS: BP 159/67
[2021-03-12] MEDS: PANTOPRAZOLE 40 MG IV IVPush SCH (17:35)
[2021-03-12 18:34] VITALS: BP 158/67
[2021-03-12] MEDS: FENOFIBRATE 145 MG TABLET PO SCH (20:18)
[2021-03-12] MEDS: LOSARTAN 100 MG TAB PO SCH (20:18)
[2021-03-12] MEDS: TEMAZEPAM 15 MG CAPSULE PO PRN (20:26)
[2021-03-13] VITALS (9 sets, daily range): BP systolic 144–190; BP diastolic 63–73
[2021-03-13] MEDS: ACETAMINOPHEN 500 MG TABLET PO SCH ×3 (02:11→20:47)
[2021-03-13] MEDS: PIPERACILLIN/TAZO 3.375 GM in DEXTROSE 5% 50 ML IVPB SCH ×3 (02:12→20:54)
[2021-03-13] MEDS ORDERED: OMEPRAZOLE 20 MG CAPSULE.DR ONE (05:13)
[2021-03-13] MEDS: METHOCARBAMOL 750 MG TABLET PO SCH ×3 (05:20→20:48)
[2021-03-13] MEDS: PANTOPRAZOLE 40 MG IV IVPush SCH (05:20)
[2021-03-13] MEDS: NYSTATIN 500,000 UNITS/5 ML UDC PO SCH ×4 (05:20→20:47)
[2021-03-13] MEDS: LEVOTHYROXINE 88 MCG TABLET PO SCH (05:21)
[2021-03-13] MEDS: METOPROLOL TARTRATE 25 MG TAB PO SCH (05:22)
[2021-03-13 06:27] LABS: BASOPHILS % (AUTO) 1 % (0-1); EOSINOPHILS % (AUTO) 1 % (1-7); LYMPHOCYTES % (AUTO) 13 % (22-44); MEAN CORPUSCULAR HEMOGLOBIN 28.3 pg (27.0-34.8); MEAN CORPUSCULAR HGB CONC 33.3 g/dL (32.4-35.8); MEAN PLATELET VOLUME 7.2 fL (7.4-10.4); MONOCYTES % (AUTO) 8 % (2-9); NEUTROPHILS % (AUTO) 77 % (42-75); PLATELET COUNT 624 x10^3/uL (130-400); RED BLOOD COUNT 3.41 x10^6/uL (3.82-5.3); RED CELL DISTRIBUTION WIDTH 15.6 % (9.6-15.2)
[2021-03-13] MEDS: MAGNESIUM OXIDE 400 MG TABLET PO SCH (08:16)
[2021-03-13] MEDS: AMLODIPINE 5 MG TABLET PO SCH (08:16)
[2021-03-13] MEDS: ENOXAPARIN 40 MG/0.4 ML SQ SCH (08:19)
[2021-03-13] MEDS: LABETALOL 5MG/ML, 20ML IVPush PRN ×2 (08:32→12:35)
[2021-03-13] MEDS: AMPICILLIN/SULBACTAM 3 GM in SODIUM CHLORIDE 0.9% 100 ML IV SCH ×4 (10:59→20:59)
[2021-03-13] MEDS: ACETAMINOPHEN 500 MG TABLET PO PRN (13:06)
[2021-03-13] MEDS ORDERED: PANTOPRAZOLE 40MG TABLET PO SCH (14:00)
[2021-03-13] MEDS: PANTOPRAZOLE 40MG TABLET PO SCH (17:24)
[2021-03-13] MEDS: METOPROLOL TARTRATE 50 MG TAB PO SCH (17:25)
[2021-03-13] MEDS: TEMAZEPAM 15 MG CAPSULE PO PRN (20:47)
[2021-03-13] MEDS: LOSARTAN 100 MG TAB PO SCH (20:47)
[2021-03-13] MEDS: FENOFIBRATE 145 MG TABLET PO SCH (20:48)
[2021-03-14] MEDS: DIPHENHYDRAMINE 25 MG CAPSULE PO PRN (01:28)
[2021-03-14] MEDS: ACETAMINOPHEN 500 MG TABLET PO PRN (01:29)
[2021-03-14 02:00] VITALS: BP 167/69
[2021-03-14] MEDS: AMPICILLIN/SULBACTAM 3 GM in SODIUM CHLORIDE 0.9% 100 ML IV SCH ×4 (05:50→21:14)
[2021-03-14] MEDS: METHOCARBAMOL 750 MG TABLET PO SCH ×3 (05:51→20:53)
[2021-03-14] MEDS: PANTOPRAZOLE 40MG TABLET PO SCH ×2 (05:51→17:50)
[2021-03-14] MEDS: METOPROLOL TARTRATE 50 MG TAB PO SCH ×2 (05:51→17:50)
[2021-03-14] MEDS: LEVOTHYROXINE 88 MCG TABLET PO SCH (05:51)
[2021-03-14] MEDS: NYSTATIN 500,000 UNITS/5 ML UDC PO SCH ×5 (05:51→20:53)
[2021-03-14 06:02] LABS: BASOPHILS % (AUTO) 1 % (0-1); EOSINOPHILS % (AUTO) 2 % (1-7); LYMPHOCYTES % (AUTO) 14 % (22-44); MEAN CORPUSCULAR HEMOGLOBIN 28.3 pg (27.0-34.8); MEAN CORPUSCULAR HGB CONC 33.3 g/dL (32.4-35.8); MONOCYTES % (AUTO) 8 % (2-9); NEUTROPHILS % (AUTO) 76 % (42-75); PLATELET COUNT 652 x10^3/uL (130-400); RED BLOOD COUNT 3.25 x10^6/uL (3.82-5.3); RED CELL DISTRIBUTION WIDTH 15.6 % (9.6-15.2)
[2021-03-14 06:03] VITALS: BP 190/66
[2021-03-14 06:03] LABS: ANION GAP 7 mmol/L (5-15); CALCIUM 8.4 mg/dL (8.5-10.1); CHLORIDE 102 mmol/L (98-107)
[2021-03-14 06:04] LABS: CREATININE 0.47 mg/dL (0.55-1.02)
[2021-03-14] MEDS: LABETALOL 5MG/ML, 20ML IVPush PRN (06:04)
[2021-03-14] MEDS ORDERED: POTASSIUM CHLORIDE 20 MEQ TAB.ER.PRT PO ONE (06:30)
[2021-03-14 09:11] VITALS: BP 144/72
[2021-03-14] MEDS: MAGNESIUM OXIDE 400 MG TABLET PO SCH (09:18)
[2021-03-14] MEDS: AMLODIPINE 5 MG TABLET PO SCH (09:18)
[2021-03-14] MEDS: ENOXAPARIN 40 MG/0.4 ML SQ SCH (09:19)
[2021-03-14] MEDS: ACETAMINOPHEN 500 MG TABLET PO SCH ×2 (09:19→20:55)
[2021-03-14] MEDS: CALCIUM CARBONATE 500 MG TAB.CHEW PO PRN (09:53)
[2021-03-14 13:15] VITALS: BP 154/73
[2021-03-14 18:49] VITALS: BP 155/65
[2021-03-14] MEDS: FENOFIBRATE 145 MG TABLET PO SCH (20:54)
[2021-03-14] MEDS: LOSARTAN 100 MG TAB PO SCH (20:54)
[2021-03-14] MEDS: TEMAZEPAM 15 MG CAPSULE PO PRN (20:54)
[2021-03-15 00:48] VITALS: BP 160/65
[2021-03-15] MEDS: ACETAMINOPHEN 500 MG TABLET PO PRN ×2 (01:11→13:00)
[2021-03-15] MEDS: DIPHENHYDRAMINE 25 MG CAPSULE PO PRN (01:11)
[2021-03-15] MEDS: AMPICILLIN/SULBACTAM 3 GM in SODIUM CHLORIDE 0.9% 100 ML IV SCH ×4 (03:59→21:47)
[2021-03-15] MEDS: NYSTATIN 500,000 UNITS/5 ML UDC PO SCH ×4 (05:52→21:46)
[2021-03-15] MEDS: PANTOPRAZOLE 40MG TABLET PO SCH ×2 (05:53→17:33)
[2021-03-15] MEDS: METOPROLOL TARTRATE 50 MG TAB PO SCH ×2 (05:53→17:33)
[2021-03-15] MEDS: METHOCARBAMOL 750 MG TABLET PO SCH ×3 (05:53→21:46)
[2021-03-15] MEDS: LEVOTHYROXINE 88 MCG TABLET PO SCH (05:53)
[2021-03-15 05:57] LABS: BASOPHILS % (AUTO) 1 % (0-1); EOSINOPHILS % (AUTO) 1 % (1-7); LYMPHOCYTES % (AUTO) 15 % (22-44); MEAN CORPUSCULAR HEMOGLOBIN 28.7 pg (27.0-34.8); MEAN CORPUSCULAR HGB CONC 33.9 g/dL (32.4-35.8); MEAN PLATELET VOLUME 6.9 fL (7.4-10.4); MONOCYTES % (AUTO) 10 % (2-9); NEUTROPHILS % (AUTO) 73 % (42-75); PLATELET COUNT 711 x10^3/uL (130-400); RED BLOOD COUNT 3.09 x10^6/uL (3.82-5.3); RED CELL DISTRIBUTION WIDTH 15.9 % (9.6-15.2)
[2021-03-15 07:33] VITALS: BP 154/61
[2021-03-15] MEDS: MAGNESIUM OXIDE 400 MG TABLET PO SCH (08:45)
[2021-03-15] MEDS: AMLODIPINE 5 MG TABLET PO SCH (08:45)
[2021-03-15] MEDS: ACETAMINOPHEN 500 MG TABLET PO SCH ×2 (08:45→21:46)
[2021-03-15] MEDS: ENOXAPARIN 40 MG/0.4 ML SQ SCH (08:46)
[2021-03-15 13:49] VITALS: BP 137/63
[2021-03-15 19:07] VITALS: BP 165/67
[2021-03-15] MEDS: LOSARTAN 100 MG TAB PO SCH (21:46)
[2021-03-15] MEDS: FENOFIBRATE 145 MG TABLET PO SCH (21:46)
[2021-03-15] MEDS: TEMAZEPAM 15 MG CAPSULE PO PRN (21:46)
[2021-03-16 00:31] VITALS: BP 154/64
[2021-03-16] MEDS: AMPICILLIN/SULBACTAM 3 GM in SODIUM CHLORIDE 0.9% 100 ML IV SCH ×4 (04:05→21:06)
[2021-03-16 04:22] LABS: BASOPHILS % (AUTO) 1 % (0-1); EOSINOPHILS % (AUTO) 2 % (1-7); LYMPHOCYTES % (AUTO) 13 % (22-44); MEAN CORPUSCULAR HEMOGLOBIN 28.4 pg (27.0-34.8); MEAN CORPUSCULAR HGB CONC 33.2 g/dL (32.4-35.8); MEAN PLATELET VOLUME 6.7 fL (7.4-10.4); MONOCYTES % (AUTO) 11 % (2-9); NEUTROPHILS % (AUTO) 73 % (42-75); PLATELET COUNT 728 x10^3/uL (130-400); RED BLOOD COUNT 3.08 x10^6/uL (3.82-5.3); RED CELL DISTRIBUTION WIDTH 16.1 % (9.6-15.2)
[2021-03-16 04:31] LABS: ALBUMIN 1.8 g/dL (3.4-5.0); ANION GAP 8 mmol/L (5-15); CALCIUM 8.5 mg/dL (8.5-10.1); CHLORIDE 103 mmol/L (98-107)
[2021-03-16 04:34] LABS: ALANINE AMINOTRANSFERASE 17 U/L (12-78); ALKALINE PHOSPHATASE 54 U/L (45-117); BILIRUBIN,TOTAL 0.4 mg/dL (0.2-1.0); CREATININE 0.49 mg/dL (0.55-1.02); TOTAL PROTEIN 5.3 g/dL (6.4-8.2)
[2021-03-16] MEDS: NYSTATIN 500,000 UNITS/5 ML UDC PO SCH ×4 (05:07→20:38)
[2021-03-16] MEDS: METHOCARBAMOL 750 MG TABLET PO SCH ×3 (05:07→20:39)
[2021-03-16] MEDS: PANTOPRAZOLE 40MG TABLET PO SCH ×2 (05:07→17:29)
[2021-03-16] MEDS: LEVOTHYROXINE 88 MCG TABLET PO SCH (05:07)
[2021-03-16] MEDS: METOPROLOL TARTRATE 50 MG TAB PO SCH ×2 (05:07→17:29)
[2021-03-16] MEDS ORDERED: POTASSIUM CHLORIDE 20 MEQ TAB.ER.PRT PO ONE (06:30)
[2021-03-16 08:07] VITALS: BP 167/70
[2021-03-16] MEDS: ENOXAPARIN 40 MG/0.4 ML SQ SCH (08:16)
[2021-03-16] MEDS: AMLODIPINE 5 MG TABLET PO SCH (08:17)
[2021-03-16] MEDS: ACETAMINOPHEN 500 MG TABLET PO SCH ×2 (08:17→20:39)
[2021-03-16] MEDS: MAGNESIUM OXIDE 400 MG TABLET PO SCH (08:17)
[2021-03-16] MEDS: SENNOSIDES 8.6 MG TABLET PO SCH (11:48)
[2021-03-16 13:06] VITALS: BP 143/69
[2021-03-16 19:07] VITALS: BP 144/62
[2021-03-16] MEDS: TEMAZEPAM 15 MG CAPSULE PO PRN (20:38)
[2021-03-16] MEDS: FENOFIBRATE 145 MG TABLET PO SCH (20:39)
[2021-03-16] MEDS: LOSARTAN 100 MG TAB PO SCH (20:39)
[2021-03-17 01:39] VITALS: BP 138/58
[2021-03-17] MEDS: AMPICILLIN/SULBACTAM 3 GM in SODIUM CHLORIDE 0.9% 100 ML IV SCH ×3 (04:35→15:35)
[2021-03-17 05:14] LABS: ANION GAP 7 mmol/L (5-15); CALCIUM 8.3 mg/dL (8.5-10.1); CHLORIDE 101 mmol/L (98-107)
[2021-03-17 05:16] LABS: CREATININE 0.44 mg/dL (0.55-1.02)
[2021-03-17 05:26] LABS: BASOPHILS % (AUTO) 1 % (0-1); EOSINOPHILS % (AUTO) 2 % (1-7); LYMPHOCYTES % (AUTO) 12 % (22-44); MEAN CORPUSCULAR HEMOGLOBIN 28.3 pg (27.0-34.8); MEAN CORPUSCULAR HGB CONC 33.1 g/dL (32.4-35.8); MEAN PLATELET VOLUME 6.7 fL (7.4-10.4); MONOCYTES % (AUTO) 10 % (2-9); NEUTROPHILS % (AUTO) 75 % (42-75); PLATELET COUNT 762 x10^3/uL (130-400); RED BLOOD COUNT 3.05 x10^6/uL (3.82-5.3)
[2021-03-17] MEDS: LEVOTHYROXINE 88 MCG TABLET PO SCH (05:42)
[2021-03-17] MEDS: PANTOPRAZOLE 40MG TABLET PO SCH (05:42)
[2021-03-17] MEDS: METOPROLOL TARTRATE 50 MG TAB PO SCH (05:42)
[2021-03-17] MEDS: METHOCARBAMOL 750 MG TABLET PO SCH ×2 (05:42→14:37)
[2021-03-17] MEDS: NYSTATIN 500,000 UNITS/5 ML UDC PO SCH ×3 (05:42→15:35)
[2021-03-17 07:22] VITALS: BP 123/73
[2021-03-17] MEDS: AMLODIPINE 5 MG TABLET PO SCH (09:48)
[2021-03-17] MEDS: SENNOSIDES 8.6 MG TABLET PO SCH (09:48)
[2021-03-17] MEDS: MAGNESIUM OXIDE 400 MG TABLET PO SCH (09:48)
[2021-03-17] MEDS: ACETAMINOPHEN 500 MG TABLET PO SCH (09:51)
[2021-03-17] MEDS: ENOXAPARIN 40 MG/0.4 ML SQ SCH (09:52)
[2021-03-17] MEDS ORDERED: SENN-211 PO (11:57)
[2021-03-17] MEDS ORDERED: ONDA4TAB7 PO (11:57)
[2021-03-17] MEDS ORDERED: METO50TA82 PO (11:57)
[2021-03-17] MEDS ORDERED: AMLO-150 PO (11:57)
[2021-03-17] MEDS ORDERED: AMPI3VIA IJ (11:57)
[2021-03-17] MEDS ORDERED: TRAM50TA2 PO (11:57)
[2021-03-17] MEDS ORDERED: ACET-1600 PO (11:57)
[2021-03-17] MEDS ORDERED: HYDR-3343 PO (11:57)
[2021-03-17] MEDS ORDERED: ENOX40SY4 SQ (11:57)
[2021-03-17 12:18] VITALS: BP 132/68
== END 2021-03-17 16:45 | DRG 459 ==
LOC: ORIP 06:04 → 4NE 19:13 → 4WST 03-07 03:24
PROVIDERS: ADMIT Orthopaedic Surgery Orthopaedic Surgery of the Spine; ATTEND Hospitalist
PROC: 01NB0ZZ Release Lumbar Nerve, Open Approach (ICD-10-PCS; 2021-02-28)
PROC: 00NY0ZZ Release Lumbar Spinal Cord, Open Approach (ICD-10-PCS; 2021-02-28)
PROC: 4A11X4G Monitoring of Peripheral Nervous Electrical Activity, Intraoperative, External Approach (ICD-10-PCS; 2021-02-28)
PROC: 07DR3ZZ Extraction of Iliac Bone Marrow, Percutaneous Approach (ICD-10-PCS; 2021-02-28)
PROC: 0SG0071 Fusion of Lumbar Vertebral Joint with Autologous Tissue Substitute, Posterior Approach, Posterior Column, Open Approach (ICD-10-PCS; principal; 2021-02-28 08:00)
PROC: 0D1N4Z4 Bypass Sigmoid Colon to Cutaneous, Percutaneous Endoscopic Approach (ICD-10-PCS; 2021-03-09)
PROC: 0DBN4ZZ Excision of Sigmoid Colon, Percutaneous Endoscopic Approach (ICD-10-PCS; 2021-03-09)
PROC: 0W9J4ZZ Drainage of Pelvic Cavity, Percutaneous Endoscopic Approach (ICD-10-PCS; 2021-03-09)
PROC: 30233N1 Transfusion of Nonautologous Red Blood Cells into Peripheral Vein, Percutaneous Approach (ICD-10-PCS; 2021-03-11)
PROC: B5181ZA Fluoroscopy of Superior Vena Cava using Low Osmolar Contrast, Guidance (ICD-10-PCS; 2021-03-15)
PROC: 02HV33Z Insertion of Infusion Device into Superior Vena Cava, Percutaneous Approach (ICD-10-PCS; 2021-03-15)
PROC: B548ZZA Ultrasonography of Superior Vena Cava, Guidance (ICD-10-PCS; 2021-03-15)
DX: M48.061 Spinal stenosis, lumbar region without neurogenic claudication (principal); E43 Unspecified severe protein-calorie malnutrition; A41.9 Sepsis, unspecified organism; J96.00 Acute respiratory failure, unspecified whether with hypoxia or hypercapnia; S32.021A Stable burst fracture of second lumbar vertebra, initial encounter for closed fracture; K57.20 Diverticulitis of large intestine with perforation and abscess without bleeding; D62 Acute posthemorrhagic anemia; E87.1 Hypo-osmolality and hyponatremia; G89.29 Other chronic pain; M54.9 Dorsalgia, unspecified; M54.16 Radiculopathy, lumbar region; M81.0 Age-related osteoporosis without current pathological fracture; R09.02 Hypoxemia; Z20.822 Contact with and (suspected) exposure to COVID-19; B37.9 Candidiasis, unspecified; E03.9 Hypothyroidism, unspecified; E78.5 Hyperlipidemia, unspecified; E87.6 Hypokalemia; G47.00 Insomnia, unspecified; I10 Essential (primary) hypertension; I16.0 Hypertensive urgency; X58.XXXA Exposure to other specified factors, initial encounter; I48.91 Unspecified atrial fibrillation; J44.9 Chronic obstructive pulmonary disease, unspecified; M06.9 Rheumatoid arthritis, unspecified; N73.9 Female pelvic inflammatory disease, unspecified; Z74.01 Bed confinement status; Z90.49 Acquired absence of other specified parts of digestive tract; Z88.5 Allergy status to narcotic agent; Z88.8 Allergy status to other drugs, medicaments and biological substances; Y93.89 Activity, other specified; Y92.89 Other specified places as the place of occurrence of the external cause; Y99.8 Other external cause status
CPT/HCPCS: 36415; 36573; 71045; 71275; 72100; 74018; 74177; 80048; 80053; 82040; 82962; 83735; 84145; 84484; 85014; 85018; 85025; 86850; 86900; 86923; 87040; 87070; 87075; 87077; 87186; 87205; 87635; 88307; 93005; 94640; 95938; 95941; C1713; G0378; J0171; J0295; J0690; J1100; J1170; J1644; J1650; J1885; J2250; J2405; J2543; J2704; J2710; J3010; J3370; J3480; Q9967; U0005; C1751; C1760; C1762; C1763; C1765; C9113; C9362; J0330; J1200; J2800; J7030; J7120; P9016; Q0163; U0003